=== PATIENT | male | born 1990 | race American Indian/Alaskan Native ===

== ENCOUNTER 2020-11-30 09:11 | Emergency (ER) | payer SELFPAY ==
[2020-11-30 09:51] VITALS: BP 123/91
--- NOTE | 2020-11-30 10:43 | XRay Report ---
RIGHT WRIST 5 VIEWS INDICATION / CLINICAL INFORMATION: PAIN AND SWELLING COMPARISON: None available. FINDINGS: BONES / JOINT(S): No acute fracture or subluxation. No significant arthritis. SOFT TISSUES: No significant abnormality. ADDITIONAL FINDINGS: None. Signer Name: Byron Soler MD Signed: 11/30/2020 10:38 AM Workstation Name: [id number]
--- NOTE | 2020-11-30 11:43 | Emergency Department Report ---
Upper Extremity - HPI Chief Complaint: Extremity Injury, Upper Stated Complaint: (R) WRIST SPRAIN AND SWOLLEN Time Seen by Provider: 11/30/20 11:40 Upper Extremity: Right Wrist Occurred When: 5 Days Severity: mild, moderate Symptoms: Yes Pain with Movement, Yes Limited Range of Movement, Yes Numbness, Yes Swelling, No Deformity, No Weakness, No Bruising/Ecchymosis Other History: 30-year-old male who is right-hand dominant presents to the ER today with complaints of right wrist pain. Patient states that about a week ago he reached behind him to slate picker a box with his right hand. He states that the box was heavy and when he picked up the box with twisted his wrist. He states that at the time he started having pain and swelling mainly to the dorsal aspect of his wrist. He states that he has been applying ice and try not to use his wrist often and he states that his symptoms were improving but yesterday while at work his coworker gave him a high-five and since then he has had increasing pain to the same right wrist but more so in the volar aspect of the wrist. Patient reports swelling and he reports increased pain with movement of the wrist. He reports that he felt some numbness in the wrist last night. He denies any bruising, open wounds, erythema or any other symptoms at this time. ED Review of Systems ROS: Stated complaint: (R) WRIST SPRAIN AND SWOLLEN Other details as noted in HPI Comment: All other systems reviewed and negative Constitutional: denies: chills, fever Eyes: denies: eye pain, eye discharge, vision change ENT: denies: ear pain, throat pain, dental pain, hearing loss, epistaxis, congestion Respiratory: denies: cough, shortness of breath, SOB with exertion, SOB at rest, wheezing Cardiovascular: denies: chest pain, palpitations Gastrointestinal: denies: abdominal pain, nausea, vomiting, diarrhea, constipation, hematemesis, hematochezia Musculoskeletal: joint swelling, arthralgia. denies: back pain, myalgia Skin: denies: rash, lesions, change in hair/nails, pruritus Neurological: denies: headache, weakness, paresthesias Psychiatric: denies: anxiety, depression, auditory hallucinations, visual hallucinations, homicidal thoughts, suicidal thoughts Hematological/Lymphatic: denies: easy bleeding, easy bruising, swollen glands ED Past Medical Hx - Past Medical History Previous Medical History?: No Additional medical history: denies - Surgical History Past Surgical History?: No Additional Surgical History: denies - Social History Smoking Status: Never Smoker Substance Use Type: None - Medications Home Medications: Home Medications Medication Instructions Recorded Confirmed Last Taken Type Ibuprofen [Motrin] 600 mg PO Q8H PRN #30 tablet 11/30/20 Unknown Rx Upper Extremity Exam - Exam General: Vital signs noted. No distress. Alert and acting appropriately. Head and Torso: No HEENT Abnormality, No Neck Tenderness, No Chest/Lungs Abnormality, No Abdominal Tenderness, No Back Tenderness Shoulder Exam: Yes Normal Range of Motion in Shoulder, No Shoulder Tenderness, No Clavicle Tenderness, No Shoulder Deformity, No AC Joint Tenderness Arm Exam: No Arm/Humerus Tenderness, No Arm Deformity Elbow: Yes Normal Range of Motion in Elbow, No Elbow Tenderness, No Elbow Deformity Wrist: Yes Wrist Tenderness (mild volar right wrist), Yes Normal ROM in Wrist (but with some pain on ROM ), No Wrist Deformity, No Snuffbox Tenderness, No Pain with Axial Thumb Compression Hand: Yes Normal ROM in Digit(s), No Hand Tenderness, No Hand Deformity, No Digit Tenderness, No Digit(s) Deformity, No Tendon Dysfunction CMS Exam: Yes Normal Distal Pulses, Yes Normal Capillary Refill, Yes Normal Distal Sensation, No Broken Skin ED Course Vital Signs 11/30/20 11/30/20 09:49 09:50 Temperature 98.7 F Pulse Rate 69 Respiratory 20 18 Rate Blood Pressure 123/91 Blood Pressure 123/91 [Right] O2 Sat by Pulse 98 Oximetry ED Medical Decision Making - Radiology Data Radiology results: report reviewed Patient: THEO SCHMID MR#: [id number] : 1990 Acct:[id number] Age/Sex: 30 / M ADM Date: 11/30/20 Loc: ED Attending Dr: Ordering Physician: KEZIA REEDER MD Date of Service: 11/30/20 Procedure(s): XR wrist 3+V RT Accession Number(s): [id number] cc: KEZIA REEDER MD Fluoro Time In Minutes: RIGHT WRIST 5 VIEWS INDICATION / CLINICAL INFORMATION: PAIN AND SWELLING COMPARISON: None available. FINDINGS: BONES / JOINT(S): No acute fracture or subluxation. No significant arthritis. SOFT TISSUES: No significant abnormality. ADDITIONAL FINDINGS: None. Signer Name: Byron Soler MD Signed: 11/30/2020 10:38 AM Workstation Name: [id number] Transcribed By: SS Dictated By: Byron Soler MD Electronically Authenticated By: Byron Soler MD Signed Date/Time: 11/30/20 1038 DD/ 1030 TD/TT: - Medical Decision Making X-ray shows nothing acute. Suspect wrist sprain at this time. Discussed x-ray results and suspected diagnosis with patient. Her splint applied. RICE instructions given to patient. Informed him if his symptoms persist for a week or 2 he needs to follow-up with Ortho. Patient expressed understanding and agree with plan. Patient was stable at time of discharge Critical care attestation.: If time is entered above; I have spent that time in minutes in the direct care of this critically ill patient, excluding procedure time. ED Disposition Clinical Impression: Sprain of wrist, right Disposition: TO HOME OR SELFCARE Is pt being admited?: No Does the pt Need Aspirin: No Condition: Stable Instructions: Elastic Bandage and RICE Therapy, Wrist Sprain, Adult Additional Instructions: Recommend that you wear the wrist splint as discussed. Take the ibuprofen as prescribed to help with pain. Continue applying ice to help with swelling and pain. Follow the RICE instructions given to you on your discharge. Follow-up with the facility practice specialist in 1 week if your symptoms persist. Return to the ER if your symptoms changes or worsens in any way peer Prescriptions: Ibuprofen [Motrin] 600 mg PO Q8H PRN #30 tablet PRN Reason: Pain Referrals: PRIMARY CAREMD [Primary Care Provider] - 3-5 Days Forms: Work/School Release Form(ED) Time of Disposition: 12:01
== END 2020-11-30 12:15 | disposition home or self-care (01) ==
LOC: ED 09:11
DX: S63.501A Unspecified sprain of right wrist, initial encounter (principal); X50.0XXA Overexertion from strenuous movement or load, initial encounter; Y93.89 Activity, other specified; Y92.89 Other specified places as the place of occurrence of the external cause; Y99.8 Other external cause status
CPT/HCPCS: 99283

== ENCOUNTER 2020-12-25 18:00 | Emergency (ER) | payer OTHER ==
[2020-12-25 20:32] VITALS: BP 129/94
--- NOTE | 2020-12-25 21:43 | Emergency Department Report ---
Chief Complaint: Extremity Injury, Lower Stated Complaint: WRIST SPRAIN - HPI History of Present Illness: 30-year-old -[place] male presents to the emergency room complaining of right wrist intermittent sharp pain. Patient seen 11/30/2020 here at this hospital x-ray of wrist was negative. Patient was diagnosed with a wrist sprain placed in a wrist immobilizer and was referred to orthopedics and has been given pain medicine. Patient has not followed up with orthopedics. - Exam Vital Signs: Vital Signs 12/25/20 20:07 Temperature 98.3 F Pulse Rate 89 Respiratory 16 Rate Blood Pressure 129/94 O2 Sat by Pulse 99 Oximetry Physical Exam: Alert and oriented x3 no acute distress nontoxic in appearance Right wrist capillary refills less than 3 seconds no swelling appreciated nonerythematous. Patient's arm is in a wrist immobilizer. Patient is ambulatory without difficulties. Vital signs are stable. MSE screening note: Focused history and physical exam performed. Due to findings the following was ordered: ED Medical Decision Making - Radiology Data Radiology results: report reviewed Study Comments [facility] [address] [place] [address] XRay Report Signed Patient: THEO SCHMID MR#: [id number] : 1990 Acct:[id number] Age/Sex: 30 / M ADM Date: 11/30/20 Loc: ED Attending Dr: Ordering Physician: KEZIA REEDER MD Date of Service: 11/30/20 Procedure(s): XR wrist 3+V RT Accession Number(s): [id number] cc: KEZIA REEDER MD Fluoro Time In Minutes: RIGHT WRIST 5 VIEWS INDICATION / CLINICAL INFORMATION: PAIN AND SWELLING COMPARISON: None available. FINDINGS: BONES / JOINT(S): No acute fracture or subluxation. No significant arthritis. SOFT TISSUES: No significant abnormality. ADDITIONAL FINDINGS: None. Signer Name: Byron Soler MD Signed: 11/30/2020 10:38 AM Workstation Name: [id number] Transcribed By: Dictated By: Byron Soler MD Electronically Authenticated By: Byron Soler MD Signed Date/Time: 11/30/20 1038 DD/ 1030 TD/TT: - Medical Decision Making 30-year-old -[place] male presents to the emergency room complaining of right wrist intermittent sharp pain. Patient seen 11/30/2020 here at this hospital x-ray of wrist was negative. Patient was diagnosed with a wrist sprain placed in a wrist immobilizer and was referred to orthopedics and has been given pain medicine. Patient has not followed up with orthopedics. Patient currently has on a wrist immobilizer and discharge papers in his pocket. Patient has pain medication. Instructed patient to take pain medication elevate arm and follow-up with orthopedics. ED Disposition for MSE Clinical Impression: Sprain of wrist, right Disposition: HOME / SELF CARE / HOMELESS Is pt being admited?: No Does the pt Need Aspirin: No Condition: Stable Additional Instructions: Follow-up with orthopedics. Elevate wrist above heart. Take pain medication as needed. Referrals: WOODY PANDYA MD [Staff Physician] - 3-5 Days Time of Disposition: 21:47
== END 2020-12-25 21:49 | disposition home or self-care (01) ==
LOC: ED 18:00
DX: S63.591A Other specified sprain of right wrist, initial encounter (principal); X58.XXXA Exposure to other specified factors, initial encounter; Y93.89 Activity, other specified; Y92.89 Other specified places as the place of occurrence of the external cause; Y99.8 Other external cause status
CPT/HCPCS: 99282